=== PATIENT | male | born 1955 | race Caucasian/White ===

== ENCOUNTER 2019-01-27 20:32 | Emergency (ER) | payer OTHER ==
[~2019-01-27] VITALS: Ht 180.3 cm; Wt 113.4 kg
[2019-01-27 21:06] LABS: ABSOLUTE BASOPHILS 0.1 thou/uL (0.0-0.2); ABSOLUTE EOSINOPHILS 0.3 thou/uL (0.0-0.7); ABSOLUTE LYMPHOCYTES 2.7 thou/uL (0.8-5.3); ABSOLUTE MONOCYTES 1.1 thou/uL (0.0-1.2); ABSOLUTE NEUTROPHILS 8.3 thou/uL (1.6-8.1); BASOPHILS 0.5 %; HEMATOCRIT 43.7 % (42.0-52.0); HEMOGLOBIN 14.5 gm/dL (14.0-18.0); MCH 27.2 pg (26.0-34.0); MCHC 33.3 g/dL (28.0-37.0); MCV 81.8 fL (80.0-100.0); MONOCYTES 8.6 %; MPV 9.1 fl. (7.2-11.1); NUCLEATED RBCS 0 /100WBC; PLATELET COUNT* 263 thou/uL (150-400); POLYS 66.9 %; RBC 5.34 mil/uL (4.50-6.00); RDW-CV 14.8 % (10.5-14.5); WBC 12.4 thou/uL (4.0-11.0)
[2019-01-27 21:15] LABS: CALCIUM 8.8 mg/dL (8.5-10.1); CREATININE 0.9 mg/dL (0.6-1.3); POTASSIUM 4.2 mmol/L (3.5-5.1)
[2019-01-27 23:19] VITALS: BP 173/71
--- NOTE | 2019-01-28 13:23 | EKG ---
[place] [address] ELECTROCARDIOGRAM REPORT Name: DARLENE GAMBINO [id number] Admission: 01/27/19 Attend Phys: Discharge: 01/27/19 Date of : 55 Report #: [id number] THIS REPORT FOR: //name// [facility] ED Test Date: 2019-01-27 Test Time: 22:48:54 Pat Name: DARLENE GAMBINO Department: Room: Gender: M Job Compositor: JOHANA : 1955 Requested By: Mesfin De Leon Order Number: [id number] Reading MD: Dontrell Carranza Measurements Intervals [place] Rate: 52 P: 33 [place]: 160 QRS: -7 QRSD: 103 T: 30 QT: 454 QTc: 423 Interpretive Statements Sinus rhythm No previous ECG available for comparison Electronically Signed On 01-28-2019 13:23:38 CDT by Dontrell Carranza [email or web address] <ELECTRONICALLY SIGNED> By: Dontrell Carranza MD, [facility] 01/28/19 1323 2248 2248 Dontrell Carranza MD, FACC /EPI
--- NOTE | 2019-01-28 13:23 | EKG ---
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
--- NOTE | 2019-01-28 13:23 | EKG ---
[place] [address] ELECTROCARDIOGRAM REPORT Name: MAKIDARLENE Galeano Room: [facility]#: [id number] Admission: 01/27/19 Attend Phys: Discharge: 01/27/19 Date of : 55 Report #: [id number] THIS REPORT FOR: //name// [facility] ED Test Date: 2019-01-27 Test Time: 22:25:37 Pat Name: DARLENE GAMBINO Department: Room: Gender: M Waiter/Waitress Second Class: : 1955 Requested By: Mesfin De Leon Order Number: [id number] MD: Dontrell Carranza Measurements Intervals [place] Rate: 55 P: 0 [place]: 144 QRS: -28 QRSD: 107 T: QT: 452 QTc: 433 Interpretive Statements Sinus rhythm Borderline left axis deviation Borderline T abnormalities, inferior leads No previous ECG available for comparison Electronically Signed On 01-28-2019 13:23:34 CDT by Dontrell Carranza [email or web address] <ELECTRONICALLY SIGNED> By: Dontrell Carranza MD, FACC 01/28/19 1323 2225 2225 Dontrell Carranza MD, [facility] /EPI
== END 2019-01-27 23:20 | disposition home or self-care (01) ==
LOC: M.ERS 20:32
PROVIDERS: Emergency Medicine Emergency Medical Services
DX: R07.89 Other chest pain (principal)

== ENCOUNTER → 2019-04-16 | Outpatient (CLI) | payer OTHER | LOC: M.RAD 10:16 | DX: M47.816 Spondylosis without myelopathy or radiculopathy, lumbar region (principal); M12.88 Other specific arthropathies, not elsewhere classified, other specified site; M48.061 Spinal stenosis, lumbar region without neurogenic claudication; M25.78 Osteophyte, vertebrae; I10 Essential (primary) hypertension ==

== ENCOUNTER → 2019-05-06 | Outpatient (CLI) | payer OTHER | LOC: M.MRI 07:51 | DX: M47.816 Spondylosis without myelopathy or radiculopathy, lumbar region (principal); M51.26 Other intervertebral disc displacement, lumbar region; M48.061 Spinal stenosis, lumbar region without neurogenic claudication; M51.27 Other intervertebral disc displacement, lumbosacral region ==

== ENCOUNTER → 2021-03-27 | Day surgery (SDC) | payer MEDICARE ==
--- NOTE | 2021-03-23 12:18 | NUR ---
INSTRUCTED PATIENT THAT THEY ARE NPO FOR SOLIDS AFTER MIDNIGHT. INSTRUCTED PATIENT OK TO HAVE CLEAR LIQUIDS UNTIL 10:00. INSTRUCTED PATIENT THAT CLEAR LIQUIDS INCLUDE COFFEE OR TEA WITHOUT CREAMER, BROTH WITHOUT NOODLES, CLEAR JUICES OF ONLY APPLE, GRAPE OR CRANBERRY, POPSICLES OR JELLO. THESE ORDERS WERE GIVEN TO ME BY DR. MORALES, DIRECTOR OF ANESTHESIA.
[~2021-03-27] MED LIST: HUMALOG100 UNIT/1 SUBQ; MULTI VITAMIN1 EACH PO; NORCO5 PO; PRINIVIL40 MG PO; TRIAMTERENE-HC1 EAC2 PO; VITAMIN D-40010 MCG PO
[2021-03-27 12:23] LABS: HEMATOCRIT 45.3 % (42.0-52.0); HEMOGLOBIN 14.8 gm/dL (14.0-18.0); MCH 26.7 pg (26.0-34.0); MCHC 32.6 g/dL (28.0-37.0); MCV 81.9 fL (80.0-100.0); MPV 8.7 fl. (7.2-11.1); RBC 5.53 mil/uL (4.50-6.00); RDW-CV 14.9 % (10.5-14.5); WBC 12.2 thou/uL (4.0-11.0)
[2021-03-27 12:32] LABS: CALCIUM 9.3 mg/dL (8.5-10.1)
--- NOTE | 2021-03-27 13:07 | EKG ---
[place] [address] ELECTROCARDIOGRAM REPORT Name: DARLENE GAMBINO JR Room: [facility]#: [id number] Admission: 03/27/21 Attend Phys: Parul Hatch, Discharge: Date of : 55 Date of Service: 03/27/21 1238 Report #: [id number] THIS REPORT FOR: //name// [facility] Test Date: 2021-03-27 Test Time: 12:38:11 Pat Name: DARLENE GAMBINO Department: Room: Gender: Low Voltage Electrician: JUAN JOSE : 1955 Requested By: Parul Hatch Order Number: [id number] MD: Adolfo Abreu Measurements Intervals [place] Rate: 53 P: -25 NV: 146 QRS: -1 QRSD: 109 T: 2 QT: 435 QTc: 409 Interpretive Statements Sinus bradycardia Compared to ECG 01/27/2019 22:48:54 No significant changes Electronically Signed On 03-27-2021 13:07:23 FRUIT DUMPER by Adolfo Abreu [email or web address] <ELECTRONICALLY SIGNED> By: Adolfo Abreu MD, [facility] 03/27/21 1307 1238 1238 Adolfo Abreu MD, [facility] /EPI
--- NOTE | 2021-03-29 17:29 | OP ---
[address] [address] OPERATIVE REPORT Name: DARLENE GAMBINO JR Room: [facility].#: [id number] Admission: 03/27/21 Attend Phys: Parul Hatch DO Discharge: Date of : 55 Report #: [id number] THIS REPORT FOR: cc: Orlin Manriquez MD, Meng MD Fisher,Parul Shelton DO ~ DATE OF SURGERY: 03/27/2021 PREOPERATIVE DIAGNOSES: 1. Gallbladder polyp. 2. Transaminitis. POSTOPERATIVE DIAGNOSES: 1. Gallbladder polyp. 2. Transaminitis. PROCEDURES: 1. Laparoscopic cholecystectomy with intraoperative cholangiogram. 2. Core needle liver biopsy x3. SURGEON: Parul Hatch DO ANESTHESIA: General endotracheal and local anesthetic. SPECIMENS: 1. Gallbladder and contents. 2. Core needle liver biopsy x3. ESTIMATED BLOOD LOSS: 5 mL. COMPLICATIONS: None. INDICATIONS FOR PROCEDURE: The patient is a 65-year-old gentleman who presented to my office for evaluation of transaminitis and a gallbladder polyp. The patient was seen and examined and explained the procedure including risks, benefits and alternatives. All questions were answered to the patient's satisfaction. Informed consent was obtained. DESCRIPTION OF PROCEDURE: After the patient was brought back to the operating room and placed in supine position, general anesthesia was induced. SCDs were placed on bilateral lower extremities and prophylactic antibiotics were administered. Next, after a timeout was performed, the abdomen was accessed via a supraumbilical Yobani trocar. The abdomen was insufflated to 15 mm of CO2. Next, under direct visualization, three 5 mm trocars were placed in the subxiphoid and right subcostal margin. The gallbladder was grasped and retracted over the dome of the liver. The patient was noted to have a fatty [facility] [address] [place] [address] OPERATIVE REPORT Name: DARLENE GAMBINO JR Room: [facility]#: [id number] Admission: 03/27/21 Attend Phys: Parul Hatch DO Discharge: Date of : 55 Report #: [id number] body of the gallbladder as well as the infundibulum of the gallbladder. This was meticulously dissected free with the [place] dissector as well as with suction oil speculator. The cystic duct and cystic artery were circumferentially dissected free until a critical view of safety was obtained. Once this was visualized, the cystic artery was doubly clipped distally, singly clipped proximally and transected. This allowed for greater length on the cystic duct. Next, the cystic duct was clipped once near the infundibulum and a ductotomy was created using the EndoShears. Next, a 14-gauge angiocatheter was placed in the right upper quadrant under direct visualization. A taut catheter was then placed and this was placed within the cystic duct and clipped into place. Fluoroscopy was used, confirming visualization of the cystic duct, left and right hepatic ducts as well as the common bile duct and filling of the duodenum. There was also filling of the pancreatic duct. There was no visualized choledocholithiasis evident on the intraoperative cholangiogram. At this time, the clip was then removed. The taut catheter was also removed. The distal cystic duct was then doubly clipped and then was transected. The branching cystic artery was singly clipped and was divided using hook cautery. Next, the gallbladder was freed from the cystic plate using hook Bovie cautery. This was then placed within an EndoCatch bag and brought out through the umbilical trocar site. Upon palpation, there was an approximately 5 mm gallstone that was palpated within the dome of the gallbladder. Otherwise, no palpable masses. At this time, the liver bed was inspected. Hemostasis was noted to be achieved. At this time, a core needle biopsy x3 was obtained. This was placed in the right upper quadrant and 3 separate core needle biopsies were taken of the right lobe of the liver under direct visualization. Hemostasis was achieved using Bovie cautery. These were placed on Telfa and placed in formalin and sent for additional specimen. At this time, again the liver bed was inspected and noted to be hemostatic. The cystic duct and cystic artery clips were noted to be in good position without bleeding or bile leakage. The abdomen was then desufflated. The 5 mm trocars were removed under direct visualization, noting excellent hemostasis at the anterior abdominal wall. The umbilical trocar was removed. The umbilical fascia was then closed with a [id number] 0 Vicryl stitch. Local anesthetic was infiltrated in all surgical sites. The skin was then closed with 4-0 Monocryl in a subcuticular manner and Dermabond was applied for sterile dressing. All sponge and instrument count was reported as correct at the end of the case. The patient tolerated the procedure well without any complications. She was awakened from the anesthesia in the operating room and taken to the PACU in stable condition for further recovery. <ELECTRONICALLY SIGNED> By: Parul Hatch DO 03/29/21 1729 1503 1656Cla Hatch DO /nt
--- NOTE | 2021-04-10 15:07 | PATH ---
[address] [address] PATHOLOGY RPT PROCEDURE Name: DONAVAN GAMBINO JR Room: [facility].#: [id number] Admission: 03/27/21 Date of : 55 Discharge: Report #: [id number] Path Case #: [id number] [facility] Accession Number: [id number] . 01 Material submitted: . PART A: liver - CORE NEEDLE BIOPSY PART B: gallbladder - GALLBLADDER WITH CONTENTS . 01 Clinical history: . LAPAROSCOPIC CHOLECYSTECTOMY WITH GRAMS BIOPSY LIVER (CLOSED) GALLBLADDER POLYPS, ELEVATED LFT . 02 Diagnosis: A. Liver, needle biopsy: - Steatosis, mild. - Minimal to mild spotty lobular necroinflammatory activity. - Focal perisinusoidal fibrosis; negative for significant bridging fibrosis or cirrhosis. - Please see comment. . B. Gallbladder, excision: - Cholesterolosis, with focal small cholesterol polyps. - Lithiasis. - Negative for malignancy. (SHAHAB:lucian; 04/03/2021) [facility] 04/09/2021 1507 Local . 02 Comment: A. The liver biopsy shows minimal spotty lobular necroinflammatory activity with superimposed steatosis. The histologic criteria for steatohepatitis is not met. There are scattered eosinophils seen within the hepatic parenchyma. This is a nonspecific finding, but does raise the question of a hypersensitivity type reaction. Please correlate clinically. (SHAHAB:lucian; 04/03/2021) . 02 Electronically signed: . Luis Enrique Monet MD, Pathologist NPI- [id number] . 01 Gross description: . A. The specimen is submitted in formalin, labeled "Donavan Gambino Jr, core needle liver biopsy". Received are 3 needle cores of dark rodriguez tissue ranging in length from 1.4 to 1.7 cm by 0.1 cm in diameter. The specimen is submitted entirely in cassette A1. . B. Fixative: [place] [address] PATHOLOGY RPT PROCEDURE Name: DONAVAN GAMBINO JR Room: [facility]#: [id number] Admission: 03/27/21 Date of : 55 Discharge: Report #: [id number] Path Case #: [id number] Labeled: Gallbladder with contents Specimen received: Intact gallbladder Dimensions: 11.0 x 4.3 x 4.0 cm Serosa: Bile-stained and adipose covered Lymph node: None identified Mucosa: Velvety and bile-stained with a minute possible polyp near body measuring 0.2 centimeters and another at fundus measuring 0.1 cm Average wall thickness: 0.2 cm Calculi: Present, black and friable Abnormalities: Possible polyps . B1- Construction Equipment Operator body, fundus, and the cystic duct margin. B2-possible polyps, entirely submitted ([facility]; 03/28/2021) [facility] 04/06/2021 1652 Local . 02 Microscopic: . A needle biopsy of the liver is available for review. The portal tracts are of appropriate size. Most are devoid of inflammation, others display a mild mixed inflammatory infiltrate, with occasional lymphocytes and plasma cells are noted. There is no evidence of portal edema and significant ductual reaction. Interface activity is minimal to non-existent. There is no evidence of granulomatous portal inflammation. . The hepatic parenchyma shows mild steatosis (approximately 30%). Macrovesicular steatosis predominates. There is focal hepatocyte ballooning. Glycogen is seen in some hepatic nuclei. Spotty lobular necroinflammatory activity is minimal. Sinusoidal inflammatory cells include lymphocytes, occasional neutrophils, and scattered rare eosinophils. . The trichrome stain highlights focal perisinusoidal fibrosis. There is no evidence of bridging septal fibrosis or cirrhosis. The reticulin stain shows an overall intact hepatic reticulin framework. Hepatic plates are variable. Some are of appropriate thickness, and others are irregularly thickened. The PAS stain highlights intracytoplasmic glycogen. The PAS-D stain fails to identify a PAS-D positive intracytoplasmic globules. An occasional ceroid-laden Kupffer cell is seen. The iron stain is negative. . Special stain results (properly controlled): PAS with and without diastase, iron, trichrome and reticulin. . (SHAHAB:lucian; 04/03/2021) . 02 Pathologist provided ICD-10: K76.0, K75.9, K82.4, K80.20 . 02 CPT . 295400, 436115, 136329, 263865, 934191, 342522, 420038 [place] [address] PATHOLOGY RPT PROCEDURE Name: DONAVAN GAMBINO JR Room: [facility]#: [id number] Admission: 03/27/21 Date of : 55 Discharge: Report #: [id number] Path Case #: [id number] Specimen Comment: A courtesy copy of this report has been sent to [phone], [phone] Specimen Comment: [id number] Specimen Comment: Report sent to / DR SCHMID Specimen Comment: A duplicate report has been generated due to demographic updates. Performed at: 01 [facility] [address] [id number] MD Tay Dumont MD Phone: [phone] Performed at: 02 [place] [address] [address] [id number] MD Rafal Martin MD Phone: [phone]
== END | disposition home or self-care (01) ==
LOC: M.SUR 06:52
PROVIDERS: ATTEND Surgery
DX: K80.20 Calculus of gallbladder without cholecystitis without obstruction (principal); K76.0 Fatty (change of) liver, not elsewhere classified; K75.9 Inflammatory liver disease, unspecified; R94.5 Abnormal results of liver function studies; Z98.890 Other specified postprocedural states; Z79.899 Other long term (current) drug therapy; Z20.822 Contact with and (suspected) exposure to COVID-19